=== PATIENT | male | born 1985 | race Two or more races ===

== ENCOUNTER 2025-01-20 23:00 | Emergency (ER) | payer SELFPAY ==
--- NOTE | 2025-01-20 23:25 | PC.NURSE ---
PT CAME IN VIA AMBULANCE WITH [facility] AND WALKED OUT THE AMBULANCE BAY DOORS STATING HE DOENT WANT TO BE SEEN. [facility] AND [facility] SOLIMAN TRIED TO CONVINCE PT TO STAY BUT WAS UNABLE TO REDIRECT THE PT.
== END 2025-01-20 23:38 | disposition left against medical advice (07) ==
LOC: SERX 23:36
PROVIDERS: Emergency Provider Emergency Medicine
DX: Z53.21 Procedure and treatment not carried out due to patient leaving prior to being seen by health care provider (principal)